=== PATIENT | male | born 1990 | race African-American/Black ===

== ENCOUNTER 2019-01-07 09:55 | Emergency (ER) | payer SELFPAY ==
[2019-01-07] MEDS ORDERED: IBUPROFEN 400 MG TAB ONE (10:39)
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
[2019-01-07 12:17] VITALS: O2SAT 100
[2019-01-07 12:20] VITALS: TEMP 97.7
[2019-01-07 12:21] VITALS: BP 111/67
== END 2019-01-07 12:12 | disposition home or self-care (01) ==
LOC: ER 09:55
DX: S70.01XA Contusion of right hip, initial encounter (principal); V43.62XA Car passenger injured in collision with other type car in traffic accident, initial encounter; Y93.89 Activity, other specified; Y92.410 Unspecified street and highway as the place of occurrence of the external cause
CPT/HCPCS: 72170; 99284

== ENCOUNTER 2019-08-21 14:05 | Emergency (ER) | payer SELFPAY ==
--- OUTSIDE RECORDS SUMMARY | 2019-08-21 14:07 | XMS REPORT | Continuity of Care Document ---
:1990 Author Organization [facility] t Address [address] [place] [address] Care Team Providers Name Role Phone Unavailable Unavailable Unavailable Problems This patient has no known problems. Allergies, Adverse Reactions, Alerts This patient has no known allergies or adverse reactions. Medications This patient has no known medications. Procedures This patient has no known procedures. Results This patient has no known results.
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
--- NOTE | 2019-08-21 14:41 | ER ---
Nurse's Notes [facility] Name: Terry Parker Age: 28 yrs Sex: Male : 1990 Arrival Date: 08/21/2019 Time: 14:06 Bed 6 Private MD: Diagnosis: Allergy status to other drugs, medicaments and biological substances status-penicillin;Dental caries, unspecified Presentation: 08/20 14:32 Chief complaint: Patient states: took some penicillin about an hour ago for a iw toothache, started breaking out in a rash all over his body and lips started swelling, took benadryl 30 min ago 50 mg PO, rash has improved, lips still swollen. Pt states he was taking left over penicillin and has never had a reaction before. Coronavirus screen: Proceed with normal triage. Patient denies a cough. Patient denies shortness of breath or difficulty breathing. Patient denies measured and/or subjective temperature greater than 100.4F prior to today's visit. Patient denies travel on a cruise ship or to a country the [facility] currently lists as an affected area. Patient denies contact with known and/or suspected case of COVID-19. Ebola Screen: Patient negative for fever greater than or equal to 101.5 degrees Fahrenheit, and additional compatible Ebola Virus Disease symptoms Patient denies exposure to infectious person. Patient denies travel to an Ebola-affected area in the 21 days before illness onset. No symptoms or risks identified at this time. Onset: The symptoms/episode began/occurred 1 hour(s) ago. Anaphylaxis evaluation, no signs or symptoms of anaphylaxis were noted. Initial Sepsis Screen: Does the patient meet any 2 criteria? No. Patient's initial sepsis screen is negative. Does the patient have a suspected source of infection? No. Patient's initial sepsis screen is negative. Risk Assessment: Do you want to hurt yourself or someone else? Patient reports no desire to harm self or others. Onset of symptoms was August 21, 2019. 14:32 Method Of Arrival: Ambulatory iw 14:32 Acuity: ANGELINE 4 iw Historical: - Allergies: 14:35 PENICILLINS; iw - Home Meds: 14:35 None [Active]; iw - PMHx: 14:35 None; iw - PSHx: 14:35 None; iw - Immunization history:: Adult Immunizations unknown. - Social history:: Smoking status: . - Family history:: not pertinent. Screenin:56 Abuse screen: Denies threats or abuse. Denies injuries from another. Nutritional jl7 screening: No deficits noted. Tuberculosis screening: No symptoms or risk factors identified. Fall Risk None identified. Assessment: 14:30 General: Appears in no apparent distress. uncomfortable, Behavior is calm, cooperative, jl7 appropriate for age. Pain: Denies pain. Neuro: Level of Consciousness is awake, alert, obeys commands, Oriented to person, place, time, situation. Cardiovascular: Patient's skin is warm and dry. Respiratory: Airway is patent Respiratory effort is even, unlabored, Respiratory pattern is regular, symmetrical, Breath sounds are clear Denies shortness of breath. Derm: Skin is dry, Skin is normal, Skin temperature is warm. Vital Signs: 14:32 BP 130 / 92; Pulse 91; Resp 16; Temp 98.2; Pulse Ox 99% on R/A; Pain 0/10; iw ED Course: 14:06 Patient arrived in ED. ag5 14:29 Ruben Jurado MD is Attending Physician. [facility] 14:32 Arm band placed on. iw 14:34 Triage completed. iw 14:35 Patient has correct armband on for positive identification. Bed in low position. Call jl7 light in reach. Side rails up X 1. Pulse ox on. NIBP on. 14:36 Lino Knowles, RN is Primary Nurse. jl7 14:56 No provider procedures requiring assistance completed. Patient did not have IV access jl7 during this emergency room visit. Administered Medications: 14:41 Drug: Pepcid 40 mg Route: PO; jl7 14:56 Follow up: Response: No adverse reaction jl7 14:41 Drug: predniSONE 60 mg Route: PO; jl7 14:55 Follow up: Response: No adverse reaction jl7 Outcome: 14:41 Discharge ordered by . [facility] 14:56 Discharged to home ambulatory, with family. jl7 14:56 Condition: stable 14:56 Discharge instructions given to patient, Instructed on discharge instructions, follow up and referral plans. medication usage, Demonstrated understanding of instructions, follow-up care, medications, Prescriptions given X 5 14:57 Patient left the ED. jl7 Signatures: Ruben Jurado MD MD cha Williams, Irene, RN RN Lino Knowles RN RN jl7 Micaela Miramontes ag5 Corrections: (The following items were deleted from the chart) 14:35 14:32 Chief complaint: Patient states: took some penicillin about an hour ago for a iw toothache, started breaking out in a rash all over his body and lips started swelling, took benadryl 30 min ago 50 mg PO, rash has improved, lips still swollen iw
[2019-08-21] MEDS ORDERED: predniSONE 20 MG TAB ONE (14:45)
[2019-08-21] MEDS ORDERED: FAMOTIDINE 20 MG TAB ONE (14:45)
[2019-08-21 15:00] VITALS: BP 130/92; TEMP 98.2; O2SAT 99
== END 2019-08-21 14:57 | disposition home or self-care (01) ==
LOC: ER 14:05
DX: K02.9 Dental caries, unspecified (principal); Z88.0 Allergy status to penicillin
CPT/HCPCS: 99283; J7512

== ENCOUNTER 2021-01-17 12:45 | Emergency (ER) | payer OTHER, SELFPAY ==
[2021-01-17] MEDS ORDERED: HYDROCODONE/APAP 7.5/325 MG TAB ONE (14:12)
--- NOTE | 2021-01-17 14:34 | RAD REPORT ---
EXAM DESCRIPTION: CT - Spine Lumbar Wo Con - 01/17/2021 2:13 pm CLINICAL HISTORY: LOWER BACK PAIN COMPARISON: None. TECHNIQUE: Thin section axial imaging of the lumbar spine was performed. Sagittal and coronal recon struction images were generated and reviewed. All CT scans are performed using dose optimization technique as appropriate and may include automated exposure control or mA/KV adjustment according to patient size. FINDINGS: Lumbar bodies are normal in height and alignment. No lumbar fracture or acute vertebral trent dy finding identifiable. SI joints are within normal range. No facet joint hypertrophy or alignment a bnormality. No pars defects are seen. No paraspinal soft tissue abnormality seen. Central canal detail is inherently limited. Patient does appear to have broad-based bulging of disc m aterial at L4-5. This flattens the anterior thecal sac but does not cause central spinal stenosis. No significant degree of foraminal stenosis seen. IMPRESSION: No lumbar vertebral body abnormality identifiable. No paraspinal mass. Probable broad-based bulging of disc material at L4-5 flattening the thecal sac without causing spina l stenosis or significant foraminal stenosis.
--- NOTE | 2021-01-17 14:55 | ER ---
Nurse's Notes [facility] Name: Terry Parker Age: 30 yrs Sex: Male : 1990 Arrival Date: 01/17/2021 Time: 12:46 Bed 12 Private MD: Diagnosis: Low back pain Presentation: 01/17 13:11 Chief complaint: Patient states: I have pain in the middle of my lower back and it ld1 shoots up to the top of my back. Pt reports pain gradually increasing since yesterday. Coronavirus screen: At this time, the client does not indicate any symptoms associated with coronavirus-19. Ebola Screen: No symptoms or risks identified at this time. Initial Sepsis Screen: Does the patient meet any 2 criteria? No. Patient's initial sepsis screen is negative. Does the patient have a suspected source of infection? No. Patient's initial sepsis screen is negative. Risk Assessment: Do you want to hurt yourself or someone else? Patient reports no desire to harm self or others. Onset of symptoms was January 17, 2021 at 13:13. 13:11 Method Of Arrival: Ambulatory ld1 13:11 Acuity: ANGELINE 4 ld1 Triage Assessment: 13:13 General: Appears in no apparent distress. comfortable, Behavior is calm, cooperative, ld1 appropriate for age. Pain: Complains of pain in lumbar area Pain radiates to thoracic area Pain currently is 5 out of 10 on a pain scale. at worst was 10 out of 10 on a pain scale. Quality of pain is described as stabbing, Pain began gradually, Is continuous. EENT: No signs and/or symptoms were reported regarding the EENT system. Neuro: Level of Consciousness is awake, alert, obeys commands, Oriented to person, place, time, situation, Appropriate for age. Cardiovascular: Capillary refill < 3 seconds Patient's skin is warm and dry. Respiratory: Airway is patent Respiratory effort is even, unlabored, Respiratory pattern is regular, symmetrical. GI: Abdomen is flat, non-distended. : No signs and/or symptoms were reported regarding the genitourinary system. Derm: No signs and/or symptoms reported regarding the dermatologic system. Musculoskeletal: Reports pain in back. Historical: - Allergies: 13:13 PENICILLINS; ld1 13:13 Amoxicillin; ld1 - Home Meds: 13:13 None [Active]; ld1 - PMHx: 13:13 None; ld1 - PSHx: 13:13 None; ld1 - Immunization history:: Adult Immunizations up to date, Client reports having NOT received the Covid vaccine. - Social history:: Smoking status: Patient reports the use of cigarette tobacco products, smokes one-half pack cigarettes per day, Patient/guardian denies using alcohol, street drugs. Screenin:52 Abuse screen: Denies threats or abuse. Denies injuries from another. Nutritional ss screening: No deficits noted. Tuberculosis screening: Never had TB. Fall Risk None identified. Assessment: 13:52 General: Appears uncomfortable, Behavior is cooperative, agitated. Pain: Complains of ss pain in lumbar area Pain radiates to thoracic area Pain currently is 10 out of 10 on a pain scale. Quality of pain is described as sharp, Pain began yesterday, denies injury. Is worse when repositioning. Is continuous. Neuro: Level of Consciousness is awake, alert, obeys commands, Oriented to person, place, time, situation. Cardiovascular:. Respiratory: Airway is patent Trachea midline Respiratory effort is even, unlabored, Respiratory pattern is regular, symmetrical. GI: No signs and/or symptoms were reported involving the gastrointestinal system. Derm: Skin is intact, is healthy with good turgor, Skin is dry. Musculoskeletal: Circulation, motion, and sensation intact. Range of motion: intact in all extremities, Swelling absent. 14:15 Reassessment: PT to CT now via wheelchair. ss Vital Signs: 13:11 BP 116 / 74; Pulse 88; Resp 18; Temp 99.6(TE); Pulse Ox 98% on R/A; Weight 68.04 kg; ld1 Height 5 ft. 9 in. (175.26 cm); Pain 4/10; 13:11 Body Mass Index 22.15 (68.04 kg, 175.26 cm) ld1 ED Course: 12:46 Patient arrived in ED. am2 13:13 Triage completed. ld1 13:15 Arm band placed on right wrist. ld1 13:52 Irma Pederson, NEAL is Primary Nurse. ss 13:52 Patient has correct armband on for positive identification. Bed in low position. Call ss light in reach. 13:57 Radha García FNP-C is PHCP. kb 13:57 Gurwinder Merlos MD is Attending Physician. kb 14:12 CT Lumbar Spine Wo Con In Process Unspecified. EDMS 15:01 No provider procedures requiring assistance completed. Patient did not have IV access ss during this emergency room visit. Administered Medications: 14:23 Drug: [place] (HYDROcodone-acetaminophen) (7.5 mg-325 mg) 1 tabs Route: PO; ss 15:02 Follow up: Response: No adverse reaction ss Outcome: 14:54 Discharge ordered by . kb 15:01 Discharged to home ambulatory, with family. ss 15:01 Condition: good 15:01 Discharge instructions given to patient, Instructed on discharge instructions, follow up and referral plans. medication usage, Demonstrated understanding of instructions, follow-up care, medications, Prescriptions given X 2. 15:02 Patient left the ED. ss Signatures: Dispatcher [employer] EDFL Radha García, Irma Evangelista RN RN Elizabeth Samuels am2 Makenzie Sahni RN RN ld1 Corrections: (The following items were deleted from the chart) 13:14 13:13 Allergies: Amoxil; ld1 ld1
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
[2021-01-17 15:30] VITALS: BP 116/74; TEMP 99.6; O2SAT 98
--- OUTSIDE RECORDS SUMMARY | 2021-01-19 21:34 | XMS REPORT | Continuity of Care Document ---
:1990 Author Organization [facility] t Address [address] [place] [address] [address] [place] [address] Care Team Providers Name Role Phone FREDDIE Attending Clinician Unavailable Penelope MORRIS Attending Clinician Unavailable Payers Payer Name Policy Type Policy Number Effective Date Expiration Date S tomi COMMERCIAL [id number] 2017 NON-CONTRACT 00:00:00 GENERIC Problems This patient has no known problems. Allergies, Adverse Reactions, Alerts Allergy Allergy Status Severity Reaction(s) Onset Inactive Treating Comm ents Source Name Type Date Date Clinician NO KNOWN Drug Active [facility] ALLERGIE Class [facility] Medications This patient has no known medications. Procedures This patient has no known procedures. Encounters Start End Encounter Admission Attending Care Care Encounter Source Date/Time Date/Time Type Type Clinicians Facility Department ID 2020-03-28 2020-03-28 Outpatient R [facility] [id number] [facility] 13:15:00 13:15:00 [id number] [facility] 2020-03-28 2020-03-28 Outpatient R FREDDIE [facility] [id number] [facility] 13:15:00 13:15:00 GERARD [facility] 2020-03-23 2020-03-23 Outpatient R [facility] [id number] [facility] 08:30:00 08:30:00 [id number] [facility] 2020-03-23 2020-03-23 Outpatient R [facility] [id number] [facility] 08:30:00 08:30:00 [facility] 2020-03-14 2020-03-14 Outpatient R ARTURO [facility] [id number] [facility] 10:00:00 10:00:00 JEAN [facility] Results This patient has no known results.
== END 2021-01-17 15:02 | disposition home or self-care (01) ==
LOC: ER 12:45
DX: M54.50 Low back pain, unspecified (principal); Z88.0 Allergy status to penicillin; Z88.1 Allergy status to other antibiotic agents; F17.210 Nicotine dependence, cigarettes, uncomplicated
CPT/HCPCS: 72131; 99283